=== PATIENT | male | born 1995 | race Hispanic/Latino ===

== ENCOUNTER 2024-06-04 10:55 | Emergency (ER) | payer BC ==
[~2024-06-04] VITALS: Ht 167.6 cm; Wt 68.0 kg
[2024-06-04 11:10] VITALS: BP 124/72; PULSE 73; RESP 16; TEMP 98.3; O2SAT 97
[2024-06-04] MEDS ORDERED: IMODIUM ONE (11:26)
[2024-06-04] MEDS ORDERED: ZOFRAN ODT ONE (11:27)
[2024-06-04] MEDS: ZOFRAN ODT SL STA (11:32)
[2024-06-04] MEDS: IMODIUM PO STA (11:32)
== END 2024-06-04 11:35 | disposition home or self-care (01) ==
LOC: ER 10:55
DX: A08.4 Viral intestinal infection, unspecified (principal)
CPT/HCPCS: 99283

== ENCOUNTER 2024-06-07 11:19 | Emergency (ER) | payer BC ==
[~2024-06-07] VITALS: Ht 165.1 cm; Wt 63.5 kg
[2024-06-07 11:19] VITALS: BP 145/91; PULSE 72; RESP 18; TEMP 98.6; O2SAT 99
[2024-06-07 12:40] VITALS: BP 122/91; PULSE 77; RESP 18; TEMP 98.6; O2SAT 99
== END 2024-06-07 12:41 | disposition home or self-care (01) ==
LOC: ER 11:19
DX: K59.00 Constipation, unspecified (principal); R14.1 Gas pain; Z98.890 Other specified postprocedural states
CPT/HCPCS: 74018; 99283